=== PATIENT | male | born 1970 | race African-American/Black ===

== ENCOUNTER 2020-05-11 08:19 | Inpatient (IN) | payer OTHER ==
--- NOTE | 2020-05-11 08:28 | BHS.RME ---
Substance Use & Tx History - Substance Use History Heroin Substance amount: 3 bundles Frequency of use: Daily Date of Last Use: 05/10/20 Cocaine- Powder Substance amount: 1.5 grams Frequency of use: Daily Substance route: Inhalation (ex: sniffing or snorting) Date of Last Use: 05/10/20 Xanax Substance amount: 2 mg 1.5 tabs Frequency of use: Daily Substance route: Oral Date of Last Use: 05/08/20 Nicotine Substance amount: 1.5 packs Frequency of use: Daily Substance route: Smoking Date of Last Use: 05/11/20 - Last Treatment Date of last treatment: 2015 Treatment type: Substance Use Disorder (GINGER) Where was last treatment: Detox Physical/Psych/Mental Status - Behavior General Behavior: Increased activity (restlessness, agitation) Eye Contact: Normal - Cooperativeness Cooperativeness: Cooperative - Thinking Thought Processes: Tight, Logical, Goal Directed - Physical Health Problems Is patient presently having any pain?: No Does patient presently have any injuries (include location): No Does patient currently have a fever: No Is patient : No COWS - Scale Resting Pulse: 1= [place] 81-100 Sweatin= Beads of Sweat on Face Restless Observation: 1= Difficult to Sit Still Pupil Size: 1= Pupils >than Normal Bone or Joint Aches: 2= Severe Diffuse Aches Runny Nose/ Eye Tearin= Runny Nose/Eyes GI Upset > 30mins: 2= Nausea/Diarrhea Tremor Observation: 2= Slight Tremor Visible Yawning Observation: 1= 1-2x During Session Anxiety or Irritability: 2=Irritable/Anxious Goose Flesh Skin: 3=Piloerection COWS Score: 20
[2020-05-11 08:51] VITALS: BMI 36.9
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
[2020-05-11] MEDS ORDERED: BISMUTH SUBSALICYLATE 524 MG/30 ML UD PO PRN (09:19)
[2020-05-11] MEDS ORDERED: MAGNESIUM HYDROX 2400MG/30ML ORAL SUSPENSION 30 ML CUP PO PRN (09:19)
[2020-05-11] MEDS ORDERED: METHADONE HCL 10 MG TABLET (FOR DETOX USE ONLY) PO ONE (09:19)
[2020-05-11] MEDS ORDERED: NICOTINE POLACRILEX 2 MG GUM BUC PRN (09:19)
[2020-05-11] MEDS ORDERED: MENTHOL/PHENOL 1 EACH UD MM PRN (09:19)
[2020-05-11] MEDS ORDERED: ONDANSETRON *ODT* 4 MG TABLET SL ONE (09:19)
[2020-05-11] MEDS ORDERED: MAGNESIUM CITRATE 300 ML BOTTLE PO PRN (09:19)
[2020-05-11] MEDS ORDERED: cloNIDine HCL 0.1 MG TABLET PO PRN (09:19)
[2020-05-11] MEDS ORDERED: IBUPROFEN 400 MG TABLET (FP) PO PRN (09:19)
[2020-05-11] MEDS ORDERED: METHOCARBAMOL 500 MG TABLET PO PRN (09:19)
[2020-05-11] MEDS ORDERED: MAG HYDROX/AL HYDROX/SIMETH 30 ML UNIT-DOSE CUP PO PRN (09:19)
[2020-05-11] MEDS ORDERED: ACETAMINOPHEN 325 MG TABLET (FP) PO PRN ×2 (09:19)
[2020-05-11] MEDS ORDERED: ALBUTEROL SO4 HFA INHALER IH PRN (09:21)
[2020-05-11] MEDS: NICOTINE 7 MG/24 HOURS TOPICAL PATCH TD SCH (10:06)
[2020-05-11] MEDS: PRENATAL VITAMINS W/ FOLIC ACID TABLET (FP) PO SCH (10:06)
[2020-05-11] MEDS: hydrOXYzine PAMOATE 25 MG CAPSULE (FP) PO SCH ×4 (10:08→22:11)
--- NOTE | 2020-05-11 13:17 | EKG ---
Test Reason : Blood Pressure : / mmHG Vent. Rate : 076 BPM Atrial Rate : 076 BPM P-R Int : 144 ms QRS Dur : 094 ms QT Int : 400 ms P-R-T Axes : 070 -60 007 degrees QTc Int : 450 ms NORMAL SINUS RHYTHM LEFT AXIS DEVIATION ABNORMAL ECG NO PREVIOUS ECGS AVAILABLE Confirmed by MING ROSSI MD ([id number]) on 05/11/2020 1:16:46 PM Referred By: Confirmed By:MING ROSSI MD
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
[2020-05-11 14:21] LABS: HEMATOCRIT 39.3 % (35.4-49); HEMOGLOBIN 12.6 GM/dL (11.7-16.9); MCH 30.6 pg (25.7-33.7); MEAN CELL VOLUME 95.7 fl (80-96); MEAN PLT VOLUME 9.3 fl (7.5-11.1); PLATELET COUNT 266 K/MM3 (134-434); RDW 13.8 % (11.9-15.9); WHITE BLOOD COUNT 7.4 K/mm3 (4.0-10.0)
[2020-05-11 14:32] LABS: ALBUMIN 3.2 g/dl (3.4-5.0); BILIRUBIN,TOTAL 0.4 mg/dL (0.2-1); BLOOD UREA NITROGEN 12.6 mg/dL (7-18); CALCIUM 8.7 mg/dL (8.5-10.1); CREATININE 0.9 mg/dL (0.55-1.3); POTASSIUM 4.9 mmol/L (3.5-5.1); TOT PROT 6.2 g/dl (6.4-8.2)
[2020-05-11] MEDS ORDERED: SUVOREXANT 10 MG TABLET PO PRN (22:00)
[2020-05-11] MEDS: THIAMINE HCL 100 MG TABLET (FP) PO SCH (22:11)
[2020-05-11] MEDS: MELATONIN 5 MG TABLETS PO SCH (22:11)
[2020-05-12] MEDS: hydrOXYzine PAMOATE 25 MG CAPSULE (FP) PO SCH ×5 (07:47→22:33)
[2020-05-12] MEDS ORDERED: METHADONE HCL 10 MG TABLET (FOR DETOX USE ONLY) ONE (08:48)
[2020-05-12] MEDS ORDERED: METHADONE HCL 5 MG TABLET (FOR DETOX USE ONLY) ONE (08:48)
[2020-05-12] MEDS ORDERED: METHADONE (DETOX) 20 MG, METHADONE (DETOX) 5 MG PO ONE (10:00)
[2020-05-12] MEDS: PRENATAL VITAMINS W/ FOLIC ACID TABLET (FP) PO SCH (10:33)
[2020-05-12] MEDS: NICOTINE 7 MG/24 HOURS TOPICAL PATCH TD SCH (10:34)
--- NOTE | 2020-05-12 11:08 | PN ---
S COWS - Scale Resting Pulse: 0= [place] 80 or Below Sweatin= Beads of Sweat on Face Restless Observation: 1= Difficult to Sit Still Pupil Size: 0= Normal to Room Light Bone or Joint Aches: 4=Acute Joint/Muscle Pain Runny Nose/ Eye Tearin= None GI Upset > 30mins: 0= None Tremor Observation of Outstretched Hands: 0= None Yawning Observation: 1= 1-2x During Session Anxiety or Irritability: 2=Irritable/Anxious Goose Flesh Skin: 0=Smooth Skin COWS Score: 11 S Progress Note (SOAP) Subjective: c/o muscle aches, headache, sweats, anxiety, and irritability. Objective: 05/12/20 11:03 Vital Signs 05/12/20 05/12/20 05/12/20 03:30 06:14 08:50 Temperature 97.8 F 97.1 F L Pulse Rate 62 67 Respiratory 18 18 18 Rate Blood Pressure 102/62 91/60 O2 Sat by Pulse 99 Oximetry (%) Laboratory Last Values WBC 7.4 K/mm3 (4.0-10.0) 05/11/20 09:15 RBC 4.10 M/mm3 (4.00-5.60) 05/11/20 09:15 Hgb 12.6 GM/dL (11.7-16.9) 05/11/20 09:15 Hct 39.3 % (35.4-49) 05/11/20 09:15 MCV 95.7 fl (80-96) 05/11/20 09:15 MCH 30.6 pg (25.7-33.7) 05/11/20 09:15 MCHC 32.0 g/dl (32.0-35.9) 05/11/20 09:15 RDW 13.8 % (11.9-15.9) 05/11/20 09:15 Plt Count 266 K/MM3 (134-434) 05/11/20 09:15 MPV 9.3 fl (7.5-11.1) 05/11/20 09:15 Sodium 141 mmol/L (136-145) 05/11/20 09:15 Potassium 4.9 mmol/L (3.5-5.1) 05/11/20 09:15 Chloride 106 mmol/L (98-107) 05/11/20 09:15 Carbon Dioxide 35 mmol/L (21-32) H 05/11/20 09:15 Anion Gap 0 MMOL/L (8-16) L 05/11/20 09:15 BUN 12.6 mg/dL (7-18) 05/11/20 09:15 Creatinine 0.9 mg/dL (0.55-1.3) 05/11/20 09:15 Est GFR (CKD-EPI)AfAm 115.02 05/11/20 09:15 Est GFR (CKD-EPI)NonAf 99.24 05/11/20 09:15 Random Glucose 60 mg/dL (74-106) L 05/11/20 09:15 Calcium 8.7 mg/dL (8.5-10.1) 05/11/20 09:15 Total Bilirubin 0.4 mg/dL (0.2-1) 05/11/20 09:15 AST 20 U/L (15-37) 05/11/20 09:15 ALT 30 U/L (13-61) 05/11/20 09:15 Alkaline Phosphatase 72 U/L (45-117) 05/11/20 09:15 Total Protein 6.2 g/dl (6.4-8.2) L 05/11/20 09:15 Albumin 3.2 g/dl (3.4-5.0) L 05/11/20 09:15 Syphilis Serology Reactive (NONREACTIVE) A* 05/11/20 09:15 RPR Titer Reactive 1:1 (NONREACTIVE) H D 05/11/20 09:15 Labs noted with reactive syphillis serology and rpr titer of 1:1. 05/12/20 11:04 Assessment: 05/12/20 11:04 AOX3, in no acute respiratory distress. Full ROM, ambulating in the unit. Withdrawal symptoms. Reactive syphillis serology and rpr titer of 1:1. Pt states that he has never had syphillis before and requested to follow-up with his pmd after discharge for a repeat of test. Pt refused to get treatment untill he sees his pmd which he was encouraged to follow-up as stated. 05/12/20 11:05 05/12/20 11:07 Plan: continue detox. Instruct pt to follow-up with his pmd after d/c.
[2020-05-12] MEDS: THIAMINE HCL 100 MG TABLET (FP) PO SCH (22:33)
[2020-05-12] MEDS: MELATONIN 5 MG TABLETS PO SCH (22:34)
[2020-05-13] MEDS: hydrOXYzine PAMOATE 25 MG CAPSULE (FP) PO SCH ×2 (05:55→09:33)
[2020-05-13 09:11] VITALS: BP 107/60; PULSE 67; TEMP 96.7
[2020-05-13] MEDS: NICOTINE 7 MG/24 HOURS TOPICAL PATCH TD SCH (09:33)
[2020-05-13] MEDS: PRENATAL VITAMINS W/ FOLIC ACID TABLET (FP) PO SCH (09:33)
[2020-05-13] MEDS ORDERED: METHADONE HCL 10 MG TABLET (FOR DETOX USE ONLY) PO ONE (10:00)
[2020-05-13] MEDS ORDERED: ONDANSETRON *ODT* 4 MG TABLET SL ONE (10:21)
--- NOTE | 2020-05-13 10:23 | PN ---
BHS COWS - Scale Resting Pulse: 0= [place] 80 or Below Sweatin= Chills/Flushing Restless Observation: 0= Sits Still Pupil Size: 1= Pupils >than Normal Bone or Joint Aches: 1= Mild Discomfort Runny Nose/ Eye Tearin= Nasal Congestion GI Upset > 30mins: 1= Stomach Cramp Tremor Observation of Outstretched Hands: 1= Tremor [place], Not Seen Yawning Observation: 0= None Anxiety or Irritability: 2=Irritable/Anxious Goose Flesh Skin: 0=Smooth Skin COWS Score: 8 BHS Progress Note (SOAP) Subjective: 49 years old male admitted on 05/11/20 for opiate withdrawal sx management treating with methadone detox regiment ate breakfast resting in bed feeling better than yesterday no vomiting but nausea after breakfast zofran 8 mg sl x 1 Objective: 05/13/20 10:23 Vital Signs - 24 hr 05/12/20 05/12/20 05/12/20 12:33 16:34 20:58 Temperature 96.8 F L 97.3 F L 97.5 F L Pulse Rate 71 68 71 Respiratory 18 16 16 Rate Blood Pressure 125/87 126/83 111/72 O2 Sat by Pulse 97 99 Oximetry (%) 05/13/20 05/13/20 05/13/20 00:37 03:30 06:22 Temperature 97.5 F L Pulse Rate 55 L Respiratory 18 18 18 Rate Blood Pressure 121/77 O2 Sat by Pulse 97 Oximetry (%) 05/13/20 08:48 Temperature 96.7 F L Pulse Rate 67 Respiratory 20 Rate Blood Pressure 107/60 O2 Sat by Pulse Oximetry (%) Laboratory Tests 05/11/20 05/11/20 05/11/20 09:15 09:15 09:15 WBC 7.4 RBC 4.10 Hgb 12.6 Hct 39.3 MCV 95.7 MCH 30.6 MCHC 32.0 RDW 13.8 Plt Count 266 MPV 9.3 Sodium 141 Potassium 4.9 Chloride 106 Carbon Dioxide 35 H Anion Gap 0 L BUN 12.6 Creatinine 0.9 Est GFR (CKD-EPI)AfAm 115.02 Est GFR (CKD-EPI)NonAf 99.24 Random Glucose 60 L Calcium 8.7 Total Bilirubin 0.4 AST 20 ALT 30 Alkaline Phosphatase 72 Total Protein 6.2 L Albumin 3.2 L Syphilis Serology Reactive A* RPR Titer COVID-19 (VALDEZ) 05/11/20 05/11/20 09:15 09:15 WBC RBC Hgb Hct MCV MCH MCHC RDW Plt Count MPV Sodium Potassium Chloride Carbon Dioxide Anion Gap BUN Creatinine Est GFR (CKD-EPI)AfAm Est GFR (CKD-EPI)NonAf Random Glucose Calcium Total Bilirubin AST ALT Alkaline Phosphatase Total Protein Albumin Syphilis Serology RPR Titer Reactive 1:1 H D COVID-19 (VALDEZ) Not detected 05/13/20 10:24 syphilis contacted untreated added into problem list mr foley continues refusing penicillin IM due to "never treated for syphilis" will follow up with "private doctor" Assessment: 05/13/20 10:26 opiate withdrawal Plan: methadone regiment
[2020-05-13] MEDS ORDERED: hydrOXYzine PAMOATE 25 MG CAPSULE (FP) PO SCH (12:30)
--- NOTE | 2020-05-13 13:11 | DS ---
[facility] Detox Discharge Summary Admission Date: 05/11/20 Discharge Date: 05/13/20 - History Present History: Opioid Dependence Additional Comments: 49 years old male admitted on 05/11/20 for opiate withdrawal sx management treated with methadone detox regiment seen by psychiatrist kathy initiated for insomnia mr foley prefers to leave the detox unit that mr attempted to stop using heroin by coming to inpatient opioid detox facility mr foley denies external reason that cause him to terminate current voluntary detox "I just do not want to be here anymore" alert oriented x 3 ambulating steady gaits cardiac s1s2 regular rate rhythm Vital Signs - 24 hr 05/12/20 05/12/20 05/13/20 16:34 20:58 00:37 Temperature 97.3 F L 97.5 F L Pulse Rate 68 71 Respiratory 16 16 18 Rate Blood Pressure 126/83 111/72 O2 Sat by Pulse 99 Oximetry (%) 05/13/20 05/13/20 05/13/20 03:30 06:22 08:48 Temperature 97.5 F L 96.7 F L Pulse Rate 55 L 67 Respiratory 18 18 20 Rate Blood Pressure 121/77 107/60 O2 Sat by Pulse 97 Oximetry (%) vital signs within acceptable range respiratory clear lung sounds bilaterally on auscultation extremities full range of motion Pertinent Past History: time for discharge 43 minutes mr foley states that his goal for current inpatient detox admission was to stop using opioid discussing the benefits of methadone regimen completion mr foley states that he may return to suboxone program treatment team met with mr foley who insists to leave voluntary inpatient opiate detox unit due to aftercare referral in [facility] and mr foley agrees to follow through with the referral denies suicidal no homocidal ideation no self destructive behavior mr foley prefers to stay in the alf tonight and follow up with aftercare referral - Physical Exam Results Vital Signs: Vital Signs Temperature 96.7 F L 05/13/20 08:48 Pulse Rate 67 05/13/20 08:48 Respiratory Rate 20 05/13/20 08:48 Blood Pressure 107/60 05/13/20 08:48 O2 Sat by Pulse Oximetry (%) 97 05/13/20 06:22 Pertinent Admission Physical Exam Findings: opiate withdrawal Vital Signs - 24 hr 05/12/20 05/12/20 05/13/20 16:34 20:58 00:37 Temperature 97.3 F L 97.5 F L Pulse Rate 68 71 Respiratory 16 16 18 Rate Blood Pressure 126/83 111/72 O2 Sat by Pulse 99 Oximetry (%) 05/13/20 05/13/20 05/13/20 03:30 06:22 08:48 Temperature 97.5 F L 96.7 F L Pulse Rate 55 L 67 Respiratory 18 18 20 Rate Blood Pressure 121/77 107/60 O2 Sat by Pulse 97 Oximetry (%) Laboratory Tests 05/11/20 05/11/20 05/11/20 09:15 09:15 09:15 WBC 7.4 RBC 4.10 Hgb 12.6 Hct 39.3 MCV 95.7 MCH 30.6 MCHC 32.0 RDW 13.8 Plt Count 266 MPV 9.3 Sodium 141 Potassium 4.9 Chloride 106 Carbon Dioxide 35 H Anion Gap 0 L BUN 12.6 Creatinine 0.9 Est GFR (CKD-EPI)AfAm 115.02 Est GFR (CKD-EPI)NonAf 99.24 Random Glucose 60 L Calcium 8.7 Total Bilirubin 0.4 AST 20 ALT 30 Alkaline Phosphatase 72 Total Protein 6.2 L Albumin 3.2 L Syphilis Serology Reactive A* RPR Titer COVID-19 (VALDEZ) 05/11/20 05/11/20 09:15 09:15 WBC RBC Hgb Hct MCV MCH MCHC RDW Plt Count MPV Sodium Potassium Chloride Carbon Dioxide Anion Gap BUN Creatinine Est GFR (CKD-EPI)AfAm Est GFR (CKD-EPI)NonAf Random Glucose Calcium Total Bilirubin AST ALT Alkaline Phosphatase Total Protein Albumin Syphilis Serology RPR Titer Reactive 1:1 H D COVID-19 (VALDEZ) Not detected serology reactive to syphilis with 1:1 ratio possible treated by history however mr foley denies history of syphilis nor treatment for syphilis mr foley states that "I do not have sex for 2 years" will follow up with health service in the community - Treatment Hospital Course: Detox Protocol Followed, Detoxed Safely, Responded well, Disc harged Condition Good, Rehab Referral Accepted Patient has Accepted a Rehab Referral [facility]: [facility] - Medication Discharge Medications: Ambulatory Orders Albuterol Sulfate Inhaler - [Ventolin HFA Inhaler -] 2 inh PO Q4H PRN 09/06/15 - Diagnosis (1) Syphilis contact, untreated Status: Chronic (2) Asthma Status: Chronic Qualifiers: Asthma severity: mild Asthma persistence: intermittent Asthma complication type: uncomplicated Qualified Code(s): J45.20 - Mild intermittent asthma, uncomplicated (3) Nicotine dependence Status: Acute Qualifiers: Nicotine product type: cigarettes Substance use status: in withdrawal Qualified Code(s): F17.213 - Nicotine dependence, cigarettes, with withdrawal (4) Opioid dependence with withdrawal Status: Acute - AMA Did Patient Leave Against Medical Advice: No COWS (PN) - Opiate Withdrawal Resting Pulse: 0= [place] 80 or Below Sweatin= No chills or Flushing Restless Observation: 0= Sits Still Pupil Size: 1= Pupils >than Normal Bone or Joint Aches: 1= Mild Discomfort Runny Nose/ Eye Tearin= None GI Upset > 30mins: 1= Stomach Cramp Tremor Observation of Outstretched Hands: 1= Tremor [place], Not Seen Yawning Observation: 0= None Anxiety or Irritability: 1=Feels Anxious/Irritable Goose Flesh Skin: 0=Smooth Skin COWS Score: 5
[2020-05-13] MEDS ORDERED: hydrOXYzine PAMOATE 50 MG CAPSULE (FP) PO SCH (18:00)
[2020-05-14] MEDS ORDERED: METHADONE (DETOX) 10 MG, METHADONE (DETOX) 5 MG PO ONE (10:00)
[2020-05-15] MEDS ORDERED: METHADONE HCL 10 MG TABLET (FOR DETOX USE ONLY) PO ONE (10:00)
[2020-05-16] MEDS ORDERED: METHADONE HCL 5 MG TABLET (FOR DETOX USE ONLY) PO ONE (06:00)
== END 2020-05-13 13:10 | disposition home or self-care (01) | DRG 773 ==
LOC: YASAS 08:19 → Y3N 09:08
PROVIDERS: ADMIT Allergy & Immunology; ATTEND Allergy & Immunology
PROC: HZ2ZZZZ Detoxification Services for Substance Abuse Treatment (ICD-10-PCS; principal; 2020-05-11)
DX: F11.23 Opioid dependence with withdrawal (principal); F13.230 Sedative, hypnotic or anxiolytic dependence with withdrawal, uncomplicated; F14.20 Cocaine dependence, uncomplicated; F17.213 Nicotine dependence, cigarettes, with withdrawal; F19.24 Other psychoactive substance dependence with psychoactive substance-induced mood disorder; F19.282 Other psychoactive substance dependence with psychoactive substance-induced sleep disorder; J45.20 Mild intermittent asthma, uncomplicated; A53.9 Syphilis, unspecified; Z91.013 Allergy to seafood
CPT/HCPCS: 36415; 80053; 85027; 86593; 86780; 93005; 93010; Q0162; U0003

== ENCOUNTER 2025-01-02 10:20 | Inpatient (IN) | payer OTHER ==
[2025-01-02 10:45] VITALS: BMI 32.6
[2025-01-02] MEDS ORDERED: BISMUTH SUBSALICYLATE 262 MG/15 ML BTL PO PRN (11:23)
[2025-01-02] MEDS ORDERED: ONDANSETRON *ODT* 4 MG TABLET SL PRN (11:23)
[2025-01-02] MEDS ORDERED: MAG HYDROX/AL HYDROX/SIMETH 30 ML UNIT-DOSE CUP PO PRN (11:23)
[2025-01-02] MEDS ORDERED: IBUPROFEN 400 MG TABLET (FP) PO PRN (11:23)
[2025-01-02] MEDS ORDERED: MAGNESIUM HYDROX 2400MG/30ML ORAL SUSPENSION 30 ML CUP PO PRN (11:23)
[2025-01-02] MEDS ORDERED: ACETAMINOPHEN 325 MG TABLET (FP) PO PRN (11:23)
[2025-01-02] MEDS ORDERED: cloNIDine HCL 0.1 MG TABLET PO PRN (11:23)
[2025-01-02] MEDS ORDERED: BENZONATATE 200 MG CAPSULE PO PRN (11:23)
[2025-01-02] MEDS ORDERED: methaDONE HCL 10 MG TABLET (FOR DETOX USE ONLY) PO PRN (11:23)
[2025-01-02] MEDS ORDERED: DICYCLOMINE HCL 10 MG CAPSULE PO PRN (11:23)
[2025-01-02] MEDS ORDERED: NALOXONE (NARCAN) HCL 4 MG/0.1 ML SPRAY NS PRN (11:23)
[2025-01-02] MEDS ORDERED: guaiFENesin 600 MG TABLET.ER (FP) PO PRN (11:23)
[2025-01-02] MEDS ORDERED: hydrOXYzine PAMOATE 25 MG CAPSULE (FP) PO PRN (11:23)
[2025-01-02] MEDS ORDERED: POLYETHYLENE GLYCOL (HEALTHYLAX) 3350 17 GM PACKET PO PRN (11:23)
[2025-01-02] MEDS ORDERED: LOPERAMIDE HCL 2 MG CAPSULE PO PRN (11:23)
[2025-01-02] MEDS ORDERED: BENZOCAINE/MENTHOL (CHLORASEPTIC ) LOZENGE MM PRN (11:23)
[2025-01-02] MEDS ORDERED: IBUPROFEN 600 MG TABLET (FP) PO PRN (11:23)
[2025-01-02] MEDS: methaDONE HCL 10 MG TABLET (FOR DETOX USE ONLY) PO ONE ×2 (12:10→15:18)
[2025-01-02] MEDS ORDERED: ALBUTEROL SO4 HFA INHALER IH PRN (14:07)
[2025-01-02] MEDS: METHOCARBAMOL 500 MG TABLET PO PRN (15:18)
[2025-01-02] MEDS: diazePAM 5 MG TABLET PO SCH (17:13)
[2025-01-02] MEDS: MELATONIN 5 MG TABLETS PO SCH (22:21)
[2025-01-02] MEDS: THIAMINE 100 MG TABLET PO SCH (22:21)
[2025-01-03] MEDS: PRENATAL VITAMINS W/ FOLIC ACID TABLET (FP) PO SCH (10:12)
[2025-01-03] MEDS: NICOTINE 7 MG/24 HOURS TOPICAL PATCH TD SCH (10:14)
[2025-01-03 11:07] LABS: HEMATOCRIT 36.7 % (35.4-49); HEMOGLOBIN 12.2 GM/dL (11.7-16.9); MCH 30.8 pg (25.7-33.7); MCHC 33.1 g/dl (32.0-35.9); MEAN CELL VOLUME 92.9 fl (80-96); MEAN PLT VOLUME 8.3 fl (7.5-11.1); PLATELET COUNT 290 10^3/uL (134-434); RBC 3.95 M/mm3 (4.00-5.60); WHITE BLOOD COUNT 6.4 K/mm3 (4.0-10.0)
[2025-01-03 11:48] LABS: CHLORIDE 105 mmol/L (98-107); POTASSIUM 4.1 mmol/L (3.5-5.1); SODIUM 142 mmol/L (136-145)
[2025-01-03 11:53] LABS: ANION GAP 6 mmol/L (4-13); BLOOD UREA NITROGEN 15.8 mg/dL (7-18); CALCIUM 8.8 mg/dL (8.5-10.1); CO2 31 mmol/L (21-32); GLUCOSE,RANDOM 96 mg/dL (74-106)
[2025-01-03 11:56] LABS: ALBUMIN 2.6 g/dl (3.4-5.0); SGOT/AST 20 U/L (15-37); SGPT/ALT 26 U/L (13-61)
[2025-01-03 11:57] LABS: CREATININE 0.6 mg/dL (0.55-1.3)
[2025-01-03 11:58] LABS: ALK PHOS 89 U/L (45-117); BILIRUBIN,TOTAL 0.2 mg/dL (0.2-1); TOT PROT 5.6 g/dl (6.4-8.2)
[2025-01-04] MEDS: diazePAM 5 MG TABLET PO SCH (05:37)
[2025-01-04] MEDS: methaDONE HCL 10 MG TABLET (FOR DETOX USE ONLY) PO ONE (09:41)
[2025-01-04] MEDS: diazePAM 5 MG TABLET PO PRN (17:20)
[2025-01-05] MEDS: diazePAM 5 MG TABLET PO SCH (05:28)
[2025-01-05] MEDS: NICOTINE POLACRILEX 2 MG GUM BUC PRN (10:09)
[2025-01-05 20:50] VITALS: TEMP 97.7
[2025-01-06] MEDS: methaDONE HCL 10 MG TABLET (FOR DETOX USE ONLY) PO ONE (05:41)
[2025-01-06] MEDS: diazePAM 5 MG TABLET PO ONE (05:41)
[2025-01-06 06:20] VITALS: BP 97/60; PULSE 68; RESP 18
[2025-01-06] MEDS ORDERED: methaDONE HCL 10 MG TABLET (FOR DETOX USE ONLY) PO ONE (10:00)
== END 2025-01-06 08:24 | disposition home or self-care (01) | DRG 773 ==
LOC: YASAS 10:20 → Y3N 13:55
PROVIDERS: ADMIT Allergy & Immunology; ATTEND Allergy & Immunology
PROC: HZ2ZZZZ Detoxification Services for Substance Abuse Treatment (ICD-10-PCS; principal; 2025-01-02)
DX: F11.23 Opioid dependence with withdrawal (principal); F10.230 Alcohol dependence with withdrawal, uncomplicated; F13.20 Sedative, hypnotic or anxiolytic dependence, uncomplicated; F14.20 Cocaine dependence, uncomplicated; F17.210 Nicotine dependence, cigarettes, uncomplicated; G62.9 Polyneuropathy, unspecified; J45.30 Mild persistent asthma, uncomplicated; R76.8 Other specified abnormal immunological findings in serum; Z86.19 Personal history of other infectious and parasitic diseases; Z56.0 Unemployment, unspecified; Z59.01 Sheltered homelessness
CPT/HCPCS: 36415; 80053; 80305; 80307; 85027; 86593; 86780; 93005; 93010